=== PATIENT | male | born 1950 | race African-American/Black ===

== ENCOUNTER 2021-01-04 08:20 | Emergency (ER) | payer BC ==
[~2021-01-04] VITALS: Ht 177.8 cm; Wt 69.0 kg
[2021-01-04 08:30] VITALS: BP 123/90
[2021-01-04] MEDS ORDERED: KETOROLAC 15MG/ML VIAL IM ONE (10:00)
[2021-01-04] MEDS ORDERED: IBUP-2028 MT (11:16)
== END 2021-01-04 11:27 | disposition home or self-care (01) ==
LOC: ER 08:20
DX: S46.912A Strain of unspecified muscle, fascia and tendon at shoulder and upper arm level, left arm, initial encounter (principal); I10 Essential (primary) hypertension; Z98.890 Other specified postprocedural states; X58.XXXA Exposure to other specified factors, initial encounter; Y93.89 Activity, other specified; Y92.89 Other specified places as the place of occurrence of the external cause; Y99.8 Other external cause status
CPT/HCPCS: 73030; 96372; 99283; J1885

== ENCOUNTER 2024-04-04 11:29 | Emergency (ER) | payer BC ==
[~2024-04-04] VITALS: Ht 177.8 cm; Wt 68.0 kg
[~2024-04-04 11:29] MED LIST: IBUP-2028 MT
[2024-04-04 11:33] VITALS: O2SAT 99
[2024-04-04 12:03] VITALS: BP 160/74; PULSE 70; RESP 16; TEMP 98.5; O2SAT 100
[2024-04-04 12:46] LABS: BASOPHILS % 0.6 % (0.0-2.0); EOSINOPHILS % 3.2 % (0.0-5.0); HEMATOCRIT. 37.2 % (42.0-52.0); HEMOGLOBIN. 12.3 g/dL (14.0-18.0); MEAN CORPUSCULAR HEMOGLOBIN 27.7 pg (28.0-32.0); MEAN CORPUSCULAR VOLUME 83.9 fL (80.0-94.0); MONOCYTES % 14.1 % (2.0-8.0); NEUTROPHILS % 33.1 % (40.0-76.0); PLATELET 385 x1000/uL (130-400); RED BLOOD CELL COUNT 4.43 mill/uL (4.7-6.1); RED CELL DISTRIBUTION WIDTH 18.8 % (11.6-14.6); WHITE BLOOD COUNT 6.6 x1000/uL (4.5-11.0)
[2024-04-04 12:48] LABS: CHLORIDE 107 mEq/L (98-107); POTASSIUM 4.3 mEq/L (3.5-5.1); SODIUM 139 mEq/L (136-145)
[2024-04-04 12:48] LABS: CLARITY URINE CLEAR (CLEAR); COLOR URINE DARK YELLOW (YELLOW); GLUCOSE URINE NEGATIVE (NEGATIVE); KETONES URINE TRACE (NEGATIVE); LEUKOCYTE ESTERASE URINE NEGATIVE (NEGATIVE); NITRITE URINE NEGATIVE (NEGATIVE); OCCULT BLOOD URINE NEGATIVE (NEGATIVE); PH URINE 5.5 (4.5-8.0); PROTEIN URINE TRACE (NEGATIVE); SPECIFIC GRAVITY URINE 1.027 (1.005-1.030)
[2024-04-04 12:49] LABS: CARBON DIOXIDE 29 mEq/L (21-32)
[2024-04-04 12:54] LABS: GLUCOSE 101 mg/dL (70-105); UREA NITROGEN BLOOD 16 mg/dL (9-23)
[2024-04-04 12:56] LABS: TROPONIN I HIGH SENSITIVITY 5 ng/L (3.0-53)
[2024-04-04 13:03] LABS: BACTERIA URINE NONE SEEN; RBC URINE 0-2 /hpf (0-2); SQUAMOUS EPITHELIAL CELL URINE RARE /lpf (RARE/1+); WBC URINE 0-2 /hpf (0-2); YEAST URINE NONE SEEN
[2024-04-04 13:10] LABS: INR 0.9; PROTHROMBIN TIME 10.4 sec (9.6-11.0)
[2024-04-04] MEDS ORDERED: IBUP-2029 MT (13:43)
== END 2024-04-04 14:09 | disposition home or self-care (01) ==
LOC: ER 11:42
DX: M47.22 Other spondylosis with radiculopathy, cervical region (principal); I10 Essential (primary) hypertension; E87.8 Other disorders of electrolyte and fluid balance, not elsewhere classified
CPT/HCPCS: 36415; 71045; 80048; 81003; 84484; 85025; 93005; 99285